=== PATIENT | male | born 1985 | race Caucasian/White ===

== ENCOUNTER 2016-10-07 14:02 | Outpatient (CLI) | payer OTHER ==
--- NOTE | 2016-10-07 20:36 | RAD ---
THORACIC SPINE 10/07/16 AP and lateral views are provided. No fracture, disc space narrowing or area of bony anomaly was see n. At most, there may be the beginnings of a few very tiny anterior osteophytes at some of the mid t o lower thoracic levels. They are probably insignificant at this point. IMPRESSION: No significant findings. POS: HOME
--- NOTE | 2016-10-07 20:55 | RAD ---
LUMBAR SPINE THREE VIEWS 10/07/16 A grade I spondylolisthesis of L5 on S1 is present with spondylolysis. No disc space narrowing was s een. There is some slight wedging of the superior end plate of T12 along with some osteophytes anter iorly at T12-L1. Many times wedging at this level is physiology, though with the presence of some sm all osteophytes here, there may have been remote trauma. It certainly does not appear acute. The rem ainder of the lumbar spine appears normal. The SI joints were unremarkable. IMPRESSION: 1. Grade I spondylolisthesis of L5 on S1 with spondylolysis. 2. Mild anterior wedging of T12, probably old. POS: HOME
== END 2016-10-07 14:03 | disposition home or self-care (01) ==
LOC: BURRAD 14:02
PROVIDERS: ATTEND Family Medicine
DX: M54.5 Low back pain (principal); M43.17 Spondylolisthesis, lumbosacral region
CPT/HCPCS: 72070; 72100

== ENCOUNTER 2016-10-20 09:54 | Outpatient (CLI) | payer OTHER | END 2016-10-20 09:55 | disposition home or self-care (01) | LOC: HPCALD 09:54 | PROVIDERS: ATTEND Family Medicine | DX: E29.1 Testicular hypofunction (principal) | CPT/HCPCS: 36415; 84403; G0103 ==

== ENCOUNTER 2023-10-12 00:32 | Observation (INO) | payer BC, OTHER ==
[2023-10-12] MEDS ORDERED: Dicyclomine 20 MG/2 ML VIAL ONE (01:03)
[2023-10-12] MEDS ORDERED: Ondansetron PF 4 MG/2 ML Vial ONE (01:03)
[2023-10-12] MEDS ORDERED: Diphenoxylate HCl/Atropine Tablet ONE (01:03)
[2023-10-12] MEDS ORDERED: Metoclopramide HCl 10 MG (2 mL) VIAL ONE (01:35)
[2023-10-12] MEDS ORDERED: diphenhydrAMINE 50 MG/ML VIAL ONE (01:35)
[2023-10-12] MEDS ORDERED: Ondansetron ODT 4 MG TAB SL PRN ×2 (04:15→06:10)
[2023-10-12] MEDS ORDERED: Sodium Chloride 0.9% 1,000 ML IV SCH (04:15)
[2023-10-12] MEDS ORDERED: Ondansetron PF 4 MG/2 ML Vial IVP PRN ×2 (04:16→06:10)
[2023-10-12] MEDS ORDERED: Dicyclomine 20 MG/2 ML VIAL IM PRN (04:17)
[2023-10-12] MEDS ORDERED: Metoclopramide HCl 10 MG (2 mL) VIAL IVP PRN (04:21)
[2023-10-12 05:04] VITALS: BMI 49.8
[2023-10-12] MEDS ORDERED: Acetaminophen 325 MG TAB PO PRN (05:57)
[2023-10-12] MEDS ORDERED: Loperamide HCl 2 MG CAP PO PRN (06:00)
[2023-10-12] MEDS ORDERED: Dextrose 5 % And 0.9 % NaCl 1,000 ML IV SCH (06:15)
[2023-10-12 06:35] LABS: ALT (SGPT) 50 U/L (8-55); AST (SGOT) 21 U/L (5-34); Alkaline Phosphatase 78 U/L (40-110); Anion Gap 20 mmol/L (10-20); BUN (Urea Nitrogen) 20 mg/dL (8.9-20.6); Bilirubin, Total 1.4 mg/dL (0.2-1.2); Calc. Creatinine Clearance 105 mL/min (70-130); Calcium 10.1 mg/dL (7.8-10.44); Carbon Dioxide 17 mmol/L (22-29); Chloride 101 mmol/L (98-107); Estimated GFR 38; Globulin 3.5 g/dL (2.4-3.5); Glucose 132 mg/dL (70-105); Potassium 3.7 mmol/L (3.5-5.1); Protein, Total 8.5 g/dL (6.0-8.3); Sodium 134 mmol/L (136-145)
[2023-10-12 06:53] LABS: #Basophils 0.1 thou/uL (0.0-0.2); #Lymphocytes 0.5 thou/uL (1.20-3.40); #Monocytes 0.4 thou/uL (0.11-0.59); #Neutrophils 5.1 thou/uL (1.40-6.50); %Basophils 0.8 % (0.0-1.0); %Eosinophils 0.2 % (0.0-10.0); %Lymphocytes 8.5 % (21.0-51.0); %Monocytes 7.2 % (0.0-10.0); %Neutrophils 83.3 % (42.0-75.0); Hematocrit 39.2 % (42.0-52.0); Hemoglobin 13.5 g/dL (14.0-18.0); Mean Corpuscular HGB CONC 34.4 g/dL (32.0-36.0); Mean Corpuscular Hemoglobin 28.4 pg (27.0-31.0); Mean Corpuscular Volume 82.5 fl (78.0-98.0); Mean Platelet Volume 6.8 fL (7.4-10.4); Platelet Count 156 10x3/uL (130-400); Red Blood Cell (RBC) Count 4.75 mill/uL (4.70-6.10); White Blood Cell (WBC) Count 6.1 10x3/uL (4.8-10.8)
[2023-10-12 07:04] LABS: ALT (SGPT) 40 U/L (8-55); AST (SGOT) 20 U/L (5-34); Albumin 4.4 g/dL (3.5-5.0); Alkaline Phosphatase 65 U/L (40-110); Anion Gap 16 mmol/L (10-20); BUN (Urea Nitrogen) 20 mg/dL (8.9-20.6); Bilirubin, Total 1.2 mg/dL (0.2-1.2); Calc. Creatinine Clearance 148 mL/min (70-130); Calcium 9.3 mg/dL (7.8-10.44); Carbon Dioxide 20 mmol/L (22-29); Chloride 103 mmol/L (98-107); Estimated GFR 58; Globulin 2.9 g/dL (2.4-3.5); Glucose 114 mg/dL (70-105); Potassium 3.7 mmol/L (3.5-5.1); Protein, Total 7.3 g/dL (6.0-8.3); Sodium 135 mmol/L (136-145)
[2023-10-12] MEDS ORDERED: Sertraline 100 MG TAB PO SCH (09:00)
[2023-10-12 09:50] LABS: SARS-CoV-2 NAA Rapid Test Not Detected (NotDetected)
[2023-10-12 17:08] VITALS: BP 168/98; TEMP 99.2
[2023-10-14 15:14] LABS: Adenovirus F 40-41 Not Detected (Not Detected); Astrovirus Not Detected (Not Detected); C. difficile toxin A+B Not Detected (Not Detected); Campylobacter by PCR Not Detected (Not Detected); Cryptosporidium Not Detected (Not Detected); Cyclospora cayetanensis Not Detected (Not Detected); Entamoeba histolytica Not Detected (Not Detected); Enteroaggregative E. coli Not Detected (Not Detected); Enteropathogenic E. coli DETECTED (Not Detected); Enterotoxigenic E. coli Not Detected (Not Detected); Giardia lamblia Not Detected (Not Detected); Norovirus GI-GII Not Detected (Not Detected); Plesiomonas shigelloides Not Detected (Not Detected); Rotavirus A Not Detected (Not Detected); Salmonella DETECTED (Not Detected); Sapovirus Not Detected (Not Detected); Shiga-toxin-producing E coli Not Detected (Not Detected); Shigella/Enteroinvasive E coli Not Detected (Not Detected); Vibrio Not Detected (Not Detected); Vibrio cholerae Not Detected (Not Detected); Yersinia enterocolitica Not Detected (Not Detected)
[2023-10-15] MEDS ORDERED: FLU VACC QS2023-24(6MOS UP)/PF 60 MCG/0.5 ML SYRINGE IM ONE (09:00)
== END 2023-10-12 17:00 | disposition home or self-care (01) ==
LOC: BURERS 00:32 → BURMED 03:38 → INTOOBSV 03:38
PROVIDERS: ADMIT Family Medicine; ATTEND Family Medicine
DX: R11.10 Vomiting, unspecified (principal); E86.0 Dehydration; N17.9 Acute kidney failure, unspecified; I10 Essential (primary) hypertension; K21.9 Gastro-esophageal reflux disease without esophagitis; F41.9 Anxiety disorder, unspecified; Z79.899 Other long term (current) drug therapy
CPT/HCPCS: 36415; 80053; 85025; 87507; 96361; 96372; 96374; 96375; 96376; G0378; J1200; J2405; J2765; J7042